=== PATIENT | female | born 1960 | race Caucasian/White ===

== ENCOUNTER 2018-06-22 06:43 | Day surgery (SDC) | payer OTHER ==
[2018-06-22] VITALS (8 sets, daily range): BP systolic 90–139; BP diastolic 62–107; PULSE 58–104; RESP 16–19; Ht 149.9 cm; Wt 64.8 kg
[~2018-06-22] VITALS: Ht 149.9 cm; Wt 64.8 kg
[2018-06-22] MEDS ORDERED: PHENYLephrine 10 MG INJ ONE ×3 (07:00→09:29)
[2018-06-22] MEDS ORDERED: DIGO125T93 PO (07:32)
[2018-06-22] MEDS ORDERED: WARF5TAB PO (07:32)
[2018-06-22] MEDS ORDERED: METO-335 PO (07:33)
[2018-06-22] MEDS ORDERED: NEOSTIGMINE 3 MG/3 ML SYRINGE ONE (08:18)
[2018-06-22] MEDS ORDERED: GLYCOPYRROLATE 0.4 MG INJ ONE (08:18)
[2018-06-22] MEDS ORDERED: MIDAZOLAM 1 MG/ML 2 ML INJ ONE (08:18)
[2018-06-22] MEDS ORDERED: PROPOFOL 20 ML ONE (08:18)
[2018-06-22] MEDS ORDERED: FENTAnyl 50 MCG/ML VIAL ONE (08:18)
[2018-06-22] MEDS ORDERED: ONDANSETRON 4 MG INJ ONE (08:18)
[2018-06-22] MEDS ORDERED: CEFAZOLIN 1 GM INJ ONE (08:18)
[2018-06-22] MEDS ORDERED: ROCURONIUM 50 MG INJ ONE (08:18)
[2018-06-22] MEDS ORDERED: DEXAMETHASONE 4 MG/ML 5 ML INJ ONE (08:19)
[2018-06-22] MEDS ORDERED: LIDOCAINE 1%/EPI (1:100,000) (MDV) 20 ML ONE (08:24)
--- NOTE | 2018-06-22 08:46 | HPN ---
Date/Time of Note Date/Time of Note DATE: 06/22/18 TIME: 08:46 Interval H&P Admission Note Pt. seen H&P reviewed: No system changes ARIN DICKEY MD Jun 22, 2018 08:46
--- NOTE | 2018-06-22 09:02 | OPR ---
Date/Time of Note Date/Time of Note DATE: 06/22/18 TIME: 09:00 Operative Report Free Text/Dictation Plastic Surgery Operative Report Preoperative diagnosis: left medial [place] basal cell Postoperative diagnosis: same Procedure: excision of left medial [place] basal cell and flap closure Surgeon: joon Gleason.: LUKE menendez Anesthesia: sedation EBL:min IV fluids: per flow sheet Findings: n/a Complications:none Dispo: home Indications for procedure:58 yo F presents for excision of a skin cancer and local flap reconstruction. The risks, benefits, alternatives of performing this procedure were discussed with the patient including the risks of bleeding, infection, wound healing problems, distortion of surrounding structures, nerve damage, changes in sensation, need for revision, and the patient states that the y understand these risks and would like to proceed with the procedure. All questions were answered, no guarantees were given with regards to the outcome of this procedure. Description of procedure: The patient was brought to the operating room at [facility] where sedation was induced. The circumference of the lesion was marked with a marking pen. 1cc of 0.2% marcaine with 1:200,000 epi was injected into the right and left supraorbital and infraorbital nerve regions as nerve blocks. 1cc of 1% lidocaine with 1:100,000 epi was injected into the base of the lesion. The circumference of the lesion was marked with a marking pen. Next, the patient was prepped and draped in usual sterile fashion. The 15 blade was then used to excise around the circumference of the lesion. This was sent for pathology. Pathology returned positive superior and inferior margins and focally deep. A new superior and inferior margin was sent to pathology. these returned negative. the deep margin was muscle and therefore a deep margin was sent for permanent sections. The deep surface was cauterized extenisvely. final size of the specimen was 1.5x1 cm. The wound was inspected, and in order to close without tension and avoid distorting the surrounding structures, a medially based advancement flap was planned extending down the junction of the nasal sidewall and cheek and along the alar margin. This was marked with the marking pen. The flap was then incised with a 15 blade, and was undermined sharply with the scissors. It was then advanced into position. It sat in place without undue tension. Therefore hemostasis was achieved with electrocautery, and then the incision was closed with 5-0 chromic suture superiorly, 5-0 vicryl, 5-0 nylon suture. The final siz e of the flap was 5x2cm. The patient tolerated procedure well, there were no complications, follow-up information and wound care instructions were given. jm foley assisted with this procedure Preoperative Diagnosis basal cell of the left medial [place] Postoperative Diagnosis same Operation/Procedure Performed excision of basal cell CA with flap reconstruction Surgeon see signature line [employer] LUKE menendez Anesthesia Type: general Estimated Blood Loss: none Transfusion none Specimen none Grafts/Implants none Complications none Procedure Description see dictation ARIN DICKEY MD Jun 22, 2018 09:02
--- NOTE | 2018-06-22 09:04 | PREAC ---
Date/Time of Note Date/Time of Note DATE: 06/22/18 TIME: 09:02 Anesthesia Eval and Record Evaluation Time Pre-Procedure Interview DATE: 06/22/18 TIME: 09:02 Age 58 Sex female NPO: 8 hrs Preoperative diagnosis left nose basal cell carcinoma Planned procedure excision left nose basal cell carcinoma Past Medical History Past Medical History: Includes Cardio: Arrythmia (a fib), Other (av septal defect s/p minimally invasive surgery) Surgery & Anesthesia Issues No known issue Meds Anticoagulation: No Beta Jorge Luis within 24 hr: Yes Reported Medications Metoprolol Succinate* (Toprol XL*) 25 Mg Tab.sr.24h, 25 MG PO DAILY, #30 TAB 06/22/18 Warfarin Sodium* (Coumadin*) 5 Mg Tablet, 5 MG PO DAILY, TAB 06/22/18 Digoxin* (Lanoxin*) 0.125 Mg Tablet, 0.125 MG PO DAILY, TAB 06/22/18 Meds reviewed: Yes Allergies Coded Allergies: Iodine and Iodide Containing Produc (Verified Allergy, Unknown, 06/22/18) Sulfa (Sulfonamide Antibiotics) (Verified Allergy, Unknown, RASH, 06/22/18) Allergies Reviewed: Yes Labs/Studies Labs Reviewed: Reviewed by anesthesiologist test: N/A Studies: CXR (napd) Pre-procedure Exam Last vitals Vital Signs Date Temp Pulse Resp B/P (MAP) Pulse Ox O2 O2 Flow FiO2 Time Delivery Rate 06/22/18 97.3 58 18 139/107 98 Room Air 07:50 (118) Airway: Adequate mouth opening, Adequate thyromental dist Mallampati: Mallampati II Teeth: Normal Lung: Normal Heart: Normal ASA Physical Status ASA physical status: 3 Emergency: None Planned Anesthetic General/MAC: MAC Planned Pain Management Parenteral pain med Pre-operative Attestations Prior to commencing anesthesia and surgery, the patient was re-evaluated, there was verification of: *The patient's identity *The results of appropriate recent lab work and preoperative vital signs *The above evaluation not changing prior to induction *Anesthetic plan, risk benefits, alternative and complications discussed with patient/family; questions answered; patient/family understands, accepts and wishes to proceed. Reyes Pappas M.D. Jun 22, 2018 09:04
[2018-06-22] MEDS ORDERED: BUPIVACAINE 0.5%/EPI (SDV) 30 ML INJ ONE (09:13)
[2018-06-22] MEDS ORDERED: LABETALOL HCL 20MG INJ IV PRN (09:30)
[2018-06-22] MEDS ORDERED: hydrALAzine 20 MG INJ IV PRN (09:30)
[2018-06-22] MEDS ORDERED: FENTAnyl 50 MCG/ML VIAL IV PRN ×3 (09:30)
[2018-06-22] MEDS ORDERED: MEPERIDINE 25 MG INJ IV PRN (09:30)
[2018-06-22] MEDS ORDERED: ONDANSETRON 4 MG INJ IV PRN ×2 (09:30)
[2018-06-22] MEDS ORDERED: morphine 2 MG INJ IV PRN (09:30)
[2018-06-22] MEDS ORDERED: OXYCODONE/ACETAMINOPHEN (5/325) TAB PO PRN ×2 (09:30)
[2018-06-22] MEDS ORDERED: EPHEDrine SULFATE 50 MG/5 ML SYG IV PRN (09:30)
[2018-06-22] MEDS ORDERED: ACETAMINOPHEN 325 MG TAB PO PRN (09:30)
[2018-06-22] MEDS ORDERED: DIPHENHYDRAMINE 50 MG INJ IV PRN (09:30)
[2018-06-22] MEDS ORDERED: IPRATROPIUM (NEB) 0.5 MG/2.5 ML AMP HHN PRN (09:30)
[2018-06-22] MEDS ORDERED: TRIMETHOBENZAMIDE 100 MG/ML VIAL IM PRN (09:30)
[2018-06-22] MEDS ORDERED: HYDROCODONE/APAP (5/325) TAB PO PRN (09:30)
[2018-06-22] MEDS ORDERED: ALBUTEROL 0.083% (NEB) 2.5 MG/3 ML AMP HHN PRN (09:30)
[2018-06-22] MEDS ORDERED: MIDAZOLAM 1 MG/ML 2 ML INJ IV PRN (09:30)
[2018-06-22] MEDS ORDERED: HYDROmorphONE 1 MG/5 ML IV SYRINGE IV PRN ×3 (09:30)
[2018-06-22] MEDS ORDERED: BACITRACIN 0.9 GM OINT ONE ×2 (10:27→10:28)
--- NOTE | 2018-06-22 11:04 | PAC ---
Date/Time of Note Date/Time of Note DATE: 06/22/18 TIME: 11:04 Post-Anesthesia Notes Post-Anesthesia Note Last documented vital signs Vital Signs Date Temp Pulse Resp B/P (MAP) Pulse Ox O2 O2 Flow FiO2 Time Delivery Rate 06/22/18 97.3 58 18 139/107 98 Room Air 07:50 (118) Activity: WNL Respiratory function: WNL Cardiovascular function: WNL Mental status: Baseline Pain reasonably controlled: Yes Hydration appropriate: Yes Nausea/Vomiting absent: Yes Reyes Pappas M.D. Jun 22, 2018 11:04
== END 2018-06-22 12:28 | disposition home or self-care (01) ==
LOC: SDS 06:43
PROVIDERS: ATTEND Surgery Plastic and Reconstructive Surgery
DX: Z85.828 Personal history of other malignant neoplasm of skin (principal)
CPT/HCPCS: 14040; 85610; 88307; 88331; J0690; J1100; J2250; J2370; J2405; J3010; Z7512; Z7610; J2710